=== PATIENT | female | born 1980 | race Caucasian/White ===

== ENCOUNTER 2018-01-26 14:15 | Inpatient (IN) | END 2018-01-28 18:25 | disposition home or self-care (01) | DRG 780 ==

== ENCOUNTER 2018-01-29 18:12 | Outpatient (CLI) | END 2018-01-29 19:38 | disposition home or self-care (01) ==

== ENCOUNTER 2018-02-01 10:30 | Inpatient (IN) | END 2018-02-02 14:26 | disposition home or self-care (01) | DRG 782 ==

== ENCOUNTER 2018-02-04 11:35 | Inpatient (IN) | END 2018-02-07 13:40 | disposition home or self-care (01) | DRG 775 ==

== ENCOUNTER 2018-02-12 02:08 | Observation (INO) | END 2018-02-13 12:00 | disposition home or self-care (01) ==